=== PATIENT | female | born 2000 | race American Indian/Alaskan Native ===

== ENCOUNTER 2019-07-28 18:25 | Emergency (ER) | payer SELFPAY ==
[2019-07-28] MEDS ORDERED: SODIUM CHLORIDE 0.9% 1000 ML 1,000 ML IV ONE (23:28)
--- NOTE | 2019-07-28 23:30 | Emergency Department Report ---
ED General Adult HPI - General Chief complaint: Pain General Stated complaint: FLU LIKE SYM/BODY PAIN Time Seen by Provider: 07/28/19 21:59 Source: patient Mode of arrival: Stretcher Limitations: No Limitations - History of Present Illness Initial comments: Patient is a 19-year-old female that presents emergency room with flulike symptoms and body aches and fever 2 weeks. Patient states she has a cough, fever, body aches, sore throat. Patient states her symptoms are worsening. Patient states her fever response to [id number] ibuprofen and Tylenol. Patient states that she did not get a flu shot this year. Patient states she has not had any medical care for this illness. Patient states her symptoms are better with rest and worse with movement. Patient states her symptoms are better with Tylenol and ibuprofen. -: Gradual - Related Data Previous Rx's Medication Instructions Recorded Last Taken Type Doxycycline Hyclate [Doxycycline 100 mg PO Q12HR 10 Days #20 tab 07/29/19 Unknown Rx Hyclate TAB] methylPREDNISolone [Medrol 4MG 4 mg PO DAILY 6 Days #1 tab.ds.pk 07/29/19 Unknown Rx DOSEPAK (21 tabs)] Allergies Allergy/AdvReac Type Severity Reaction Status Date / Time No Known Allergies Allergy Unverified 07/28/19 18:37 ED Review of Systems ROS: Stated complaint: FLU LIKE SYM/BODY PAIN Other details as noted in HPI Constitutional: chills, fever Eyes: denies: eye pain, eye discharge, vision change ENT: throat pain. denies: ear pain Respiratory: cough. denies: shortness of breath, wheezing Cardiovascular: denies: chest pain, palpitations Endocrine: no symptoms reported Gastrointestinal: denies: abdominal pain, nausea, diarrhea Genitourinary: denies: urgency, dysuria, discharge Musculoskeletal: denies: back pain, joint swelling, arthralgia Skin: denies: rash, lesions Neurological: denies: headache, weakness, paresthesias Psychiatric: denies: anxiety, depression Hematological/Lymphatic: denies: easy bleeding, easy bruising ED Past Medical Hx - Past Medical History Previous Medical History?: No - Surgical History Past Surgical History?: No - Family History Family history: no significant - Social History Smoking Status: Never Smoker Substance Use Type: None - Medications Home Medications: Home Medications Medication Instructions Recorded Confirmed Last Taken Type Doxycycline Hyclate [Doxycycline 100 mg PO Q12HR 10 Days #20 tab 07/29/19 Unknown Rx Hyclate TAB] methylPREDNISolone [Medrol 4MG 4 mg PO DAILY 6 Days #1 tab.ds.pk 07/29/19 Unknown Rx DOSEPAK (21 tabs)] ED Physical Exam - General Limitations: No Limitations General appearance: alert, in no apparent distress - Head Head exam: Present: atraumatic, normocephalic - Eye Eye exam: Present: normal appearance, PERRL Pupils: Present: normal accommodation - ENT ENT exam: Present: mucous membranes moist - Expanded ENT Exam Expanded Mouth exam: Present: tongue normal. Absent: drooling, trismus, muffled voice Throat exam: Positive: other (oropharynx erythema noted) - Neck Neck exam: Present: normal inspection, full ROM. Absent: tenderness, meningismus, lymphadenopathy, thyromegaly - Respiratory Respiratory exam: Present: normal lung sounds bilaterally. Absent: respiratory distress, wheezes, rales - Cardiovascular Cardiovascular Exam: Present: regular rate, normal rhythm. Absent: systolic murmur, diastolic murmur, rubs, gallop - GI/Abdominal GI/Abdominal exam: Present: soft, normal bowel sounds. Absent: distended, tenderness, guarding - Extremities Exam Extremities exam: Present: normal inspection - Back Exam Back exam: Present: normal inspection - Neurological Exam Neurological exam: Present: alert, oriented X3 - Psychiatric Psychiatric exam: Present: normal affect, normal mood - Skin Skin exam: Present: warm, dry, intact, normal color. Absent: rash ED Course Vital Signs 07/28/19 07/28/19 07/28/19 18:44 22:00 23:50 Temperature 100.4 F H 100.6 F H Pulse Rate 118 H Respiratory 18 20 Rate Blood Pressure 127/84 O2 Sat by Pulse 99 96 96 Oximetry 07/29/19 07/29/19 07/29/19 00:14 00:15 00:30 Temperature Pulse Rate 100 H Respiratory 18 Rate Blood Pressure 114/68 131/84 O2 Sat by Pulse 95 99 99 Oximetry 07/29/19 07/29/19 07/29/19 00:45 01:00 01:15 Temperature Pulse Rate Respiratory Rate Blood Pressure 109/72 117/74 111/68 O2 Sat by Pulse 98 99 99 Oximetry 07/29/19 01:30 Temperature Pulse Rate 103 H Respiratory 18 Rate Blood Pressure 108/67 O2 Sat by Pulse 100 Oximetry - Reevaluation(s) Reevaluation #1: I discussed all results with patient. Discussed plan of care with patient. Patient agrees to plan of care. Patient will be discharged home. Patient stable discharge. Patient given discharge instructions. Patient voiced understanding of discharge instructions. 07/29/19 01:08 ED Medical Decision Making - Lab Data Result diagrams: 07/28/19 23:37 07/28/19 23:37 - Radiology Data Radiology results: report reviewed interpreted by me: No acute findings on chest x-ray. CHEST 1 VIEW INDICATION / CLINICAL INFORMATION: cough. COMPARISON: None available. FINDINGS: SUPPORT DEVICES: None. HEART / MEDIASTINUM: No significant abnormality. LUNGS / PLEURA: No significant pulmonary or pleural abnormality. No pneumothorax. ADDITIONAL FINDINGS: No significant additional findings. IMPRESSION: 1. No significant change - Medical Decision Making Condition is a 19-year-old female that presents emergency room with complaints of upper respiratory symptoms and flulike symptoms. Patient's complaints include cough, fever, sore throat, runny nose. Patient's symptoms have been going on for 2 weeks. Patient will be treated with antibiotics and steroids. Patient's labs unremarkable except for positive flu B. Patient is outside the window for flu treatment center symptoms of a going on for 2 weeks. chest x-ray was negative. - Differential Diagnosis cough, fever, flu, URI, bronchitis, pneumonia Critical care attestation.: If time is entered above; I have spent that time in minutes in the direct care of this critically ill patient, excluding procedure time. ED Disposition Clinical Impression: Body aches, Sore throat, Influenza B Fever Qualifiers: Fever type: unspecified Qualified Code(s): R50.9 - Fever, unspecified URI (upper respiratory infection) Qualifiers: URI type: unspecified URI Qualified Code(s): J06.9 - Acute upper respiratory infection, unspecified Disposition: - TO HOME OR SELFCARE Is pt being admited?: No Does the pt Need Aspirin: No Condition: Stable Instructions: Fever in Adults (ED), Influenza (ED), Upper Respiratory Infection (ED), Cold Symptoms (ED) Additional Instructions: Patient to follow up with primary care in 2-3 days. Patient to return to ER condition worsens, changes or new symptoms arise. Patient to take Tylenol or ibuprofen when necessary for pain or fever. Patient to rest. Patient to increase water. Patient's take meds as directed. Prescriptions: Doxycycline Hyclate [Doxycycline Hyclate TAB] 100 mg PO Q12HR 10 Days #20 tab methylPREDNISolone [Medrol 4MG DOSEPAK (21 tabs)] 4 mg PO DAILY 6 Days #1 tab.ds.pk Referrals: PRIMARY CARE, [Primary Care Provider] - 2-3 Days Time of Disposition: 01:06
--- NOTE | 2019-07-29 00:09 | XRay Report ---
CHEST 1 VIEW INDICATION / CLINICAL INFORMATION: cough. COMPARISON: None available. FINDINGS: SUPPORT DEVICES: None. HEART / MEDIASTINUM: No significant abnormality. LUNGS / PLEURA: No significant pulmonary or pleural abnormality. No pneumothorax. ADDITIONAL FINDINGS: No significant additional findings. IMPRESSION: 1. No significant change Signer Name: Milad Mancilla MD Signed: 07/29/2019 12:04 AM Workstation Name: [id number]
[2019-07-29 00:11] LABS: Hematocrit 35.9 % (30.3-42.9); Hemoglobin 12.1 gm/dl (10.1-14.3); Mean Corpuscular HGB Conc 34 % (30-34); Mean Corpuscular Volume 90 fl (79-97); Platelet Count 173 K/mm3 (140-440); Red Blood Count 3.99 M/mm3 (3.65-5.03); Red Cell Distribution Width 13.4 % (13.2-15.2)
[2019-07-29 00:34] LABS: Alanine Aminotransferase 10 units/L (7-56); BUN/Creatinine Ratio 12; Blood Urea Nitrogen 7 mg/dL (7-17); Hemolysis Index 6
[2019-07-29 01:31] VITALS: BP 108/67
== END 2019-07-29 01:44 | disposition home or self-care (01) ==
LOC: ED 18:25
DX: J10.1 Influenza due to other identified influenza virus with other respiratory manifestations (principal); J06.9 Acute upper respiratory infection, unspecified; Z79.899 Other long term (current) drug therapy
CPT/HCPCS: 36415; 71045; 80053; 84703; 85027; 87116; 87400; 87430; 99284; J7030